=== PATIENT | male | born 1960 | race Caucasian/White ===

== ENCOUNTER 2020-01-18 04:17 | Outpatient (RCR) | payer OTHER, SELFPAY ==
[2020-01-04 07:41] LABS: Abs Immature Grans 0.01 k/cumm (0.0-0.09); Absolute Basophil Count 0.01 k/cumm (0.0-0.2); Absolute Lymphocyte Count 1.51 k/cumm (1.2-3.4); Absolute Monocyte Count 0.61 k/cumm (0.11-0.7); Absolute Neutrophil Count 3.88 k/cumm (1.2-6.7); Basophils % 0.2; Eosinophils % 1.6; HCT 43.2 % (40.0-50.0); HGB 15.3 g/dL (13.5-17.5); Immature Grans % 0.2 %; Lymphocytes % 24.7; Mean Corp. HGB Concentration 35.4 g/dL (32.0-36.0); Mean Corpuscular Hemoglobin 32.6 pg (27.0-33.0); Mean Corpuscular Volume 92.1 fL (80-95); Mean Platelet Volume 9.8 fL (8.0-11.0); Neutrophils % 63.3; Platelet Count 138 x1000/uL (130-400); RBC 4.69 m/cumm (4.50-6.00); RBC Distribution Width 12.4 % (11.8-14.1); White Blood Cell Count 6.12 k/cumm (4.4-10.8)
[2020-01-04] MEDS: Normal Saline Flush 10 ML SYR IVP (07:43)
[2020-01-04 08:30] LABS: ALT 53 U/L (16-63); AST 39 U/L (15-37); Albumin 3.6 g/dL (3.4-5.0); Alkaline Phosphatase 168 U/L (46-116); Anion Gap 8.2 mmol/L (3-11); BUN 13 mg/dL (7-18); Bilirubin, Total 0.6 mg/dL (0.2-1.0); CO2 28.8 mmol/L (21.0-32.0); CREATININE 1.18 mg/dL (0.70-1.30); Calcium 8.7 mg/dL (8.5-10.1); Chloride 103 mmol/L (98-107); Glucose 114 mg/dL (74-106); Potassium 3.8 mmol/L (3.5-5.1); Sodium 140 mmol/L (136-145); Total Protein 6.8 g/dL (6.4-8.2)
[2020-01-11] MEDS: Normal Saline Flush 10 ML SYR IVP (10:43)
[2020-01-11 10:46] LABS: Abs Immature Grans 0.03 k/cumm (0.0-0.09); Absolute Basophil Count 0.01 k/cumm (0.0-0.2); Absolute Eosinophil Count 0.07 k/cumm (0.0-0.7); Absolute Lymphocyte Count 1.08 k/cumm (1.2-3.4); Absolute Monocyte Count 0.31 k/cumm (0.11-0.7); Absolute Neutrophil Count 3.83 k/cumm (1.2-6.7); Basophils % 0.2; Eosinophils % 1.3; HCT 40.4 % (40.0-50.0); HGB 14.4 g/dL (13.5-17.5); Immature Grans % 0.6 %; Lymphocytes % 20.3; Mean Corp. HGB Concentration 35.6 g/dL (32.0-36.0); Mean Corpuscular Hemoglobin 32.6 pg (27.0-33.0); Mean Corpuscular Volume 91.4 fL (80-95); Mean Platelet Volume 9.2 fL (8.0-11.0); Monocytes % 5.8; Neutrophils % 71.8; Platelet Count 161 x1000/uL (130-400); RBC 4.42 m/cumm (4.50-6.00); RBC Distribution Width 12.2 % (11.8-14.1); White Blood Cell Count 5.33 k/cumm (4.4-10.8)
[2020-01-11 11:37] LABS: ALT 63 U/L (16-63); AST 39 U/L (15-37); Albumin 3.6 g/dL (3.4-5.0); Alkaline Phosphatase 149 U/L (46-116); Anion Gap 6.1 mmol/L (3-11); BUN 15 mg/dL (7-18); Bilirubin, Total 0.7 mg/dL (0.2-1.0); CO2 29.9 mmol/L (21.0-32.0); CREATININE 1.14 mg/dL (0.70-1.30); Calcium 8.5 mg/dL (8.5-10.1); Chloride 102 mmol/L (98-107); Glucose 126 mg/dL (74-106); Potassium 3.9 mmol/L (3.5-5.1); Sodium 138 mmol/L (136-145); Total Protein 6.8 g/dL (6.4-8.2)
[2020-01-18 10:30] LABS: Abs Immature Grans 0.01 k/cumm (0.0-0.09); Absolute Basophil Count 0.01 k/cumm (0.0-0.2); Absolute Eosinophil Count 0.02 k/cumm (0.0-0.7); Absolute Lymphocyte Count 0.62 k/cumm (1.2-3.4); Absolute Monocyte Count 0.19 k/cumm (0.11-0.7); Absolute Neutrophil Count 1.85 k/cumm (1.2-6.7); Basophils % 0.4; Eosinophils % 0.7; HCT 37.6 % (40.0-50.0); HGB 13.6 g/dL (13.5-17.5); Immature Grans % 0.4 %; Mean Corp. HGB Concentration 36.2 g/dL (32.0-36.0); Mean Corpuscular Hemoglobin 32.8 pg (27.0-33.0); Mean Corpuscular Volume 90.6 fL (80-95); Mean Platelet Volume 9.1 fL (8.0-11.0); Neutrophils % 68.5; Platelet Count 146 x1000/uL (130-400); RBC 4.15 m/cumm (4.50-6.00); RBC Distribution Width 12.3 % (11.8-14.1)
[2020-01-18] MEDS: Normal Saline Flush 10 ML SYR IVP (10:32)
[2020-01-18 10:42] LABS: ALT 57 U/L (16-63); AST 32 U/L (15-37); Albumin 3.6 g/dL (3.4-5.0); Alkaline Phosphatase 155 U/L (46-116); BUN 17 mg/dL (7-18); Bilirubin, Total 0.8 mg/dL (0.2-1.0); CREATININE 0.98 mg/dL (0.70-1.30); Calcium 8.8 mg/dL (8.5-10.1); Chloride 104 mmol/L (98-107); Glucose 108 mg/dL (74-106); Potassium 3.9 mmol/L (3.5-5.1); Sodium 140 mmol/L (136-145); Total Protein 6.7 g/dL (6.4-8.2)
== END 2020-01-22 23:59 | disposition home or self-care (01) ==
LOC: INF 04:17
PROVIDERS: PCP Family Medicine Adult Medicine; Visit Provider Internal Medicine Hematology & Oncology
DX: C15.9 Malignant neoplasm of esophagus, unspecified (principal); Z45.2 Encounter for adjustment and management of vascular access device
CPT/HCPCS: 36591; 80053; 85025

== ENCOUNTER 2020-02-08 04:22 | Outpatient (RCR) | payer OTHER, SELFPAY ==
[2020-01-24 10:28] LABS: Abs Immature Grans 0.01 k/cumm (0.0-0.09); Absolute Basophil Count 0.01 k/cumm (0.0-0.2); Absolute Eosinophil Count 0.01 k/cumm (0.0-0.7); Absolute Lymphocyte Count 0.45 k/cumm (1.2-3.4); Absolute Monocyte Count 0.16 k/cumm (0.11-0.7); Absolute Neutrophil Count 1.67 k/cumm (1.2-6.7); Basophils % 0.4; Eosinophils % 0.4; HGB 12.5 g/dL (13.5-17.5); Immature Grans % 0.4 %; Lymphocytes % 19.5; Mean Corp. HGB Concentration 35.7 g/dL (32.0-36.0); Mean Corpuscular Hemoglobin 32.3 pg (27.0-33.0); Mean Corpuscular Volume 90.4 fL (80-95); Mean Platelet Volume 9.4 fL (8.0-11.0); Monocytes % 6.9; Neutrophils % 72.4; Platelet Count 143 x1000/uL (130-400); RBC 3.87 m/cumm (4.50-6.00); RBC Distribution Width 12.9 % (11.8-14.1); White Blood Cell Count 2.31 k/cumm (4.4-10.8)
[2020-01-24 10:44] LABS: ALT 52 U/L (16-63); AST 36 U/L (15-37); Albumin 3.7 g/dL (3.4-5.0); Alkaline Phosphatase 132 U/L (46-116); BUN 17 mg/dL (7-18); Bilirubin, Total 1.3 mg/dL (0.2-1.0); CREATININE 1.07 mg/dL (0.70-1.30); Calcium 8.5 mg/dL (8.5-10.1); Chloride 102 mmol/L (98-107); Glucose 101 mg/dL (74-106); Potassium 3.7 mmol/L (3.5-5.1); Sodium 138 mmol/L (136-145); Total Protein 6.8 g/dL (6.4-8.2)
[2020-01-24] MEDS: Normal Saline Flush 10 ML SYR IVP (10:44)
[2020-02-01 10:24] LABS: Abs Immature Grans 0.03 k/cumm (0.0-0.09); Absolute Basophil Count 0.01 k/cumm (0.0-0.2); Absolute Eosinophil Count 0.01 k/cumm (0.0-0.7); Absolute Lymphocyte Count 0.42 k/cumm (1.2-3.4); Absolute Monocyte Count 0.33 k/cumm (0.11-0.7); Basophils % 0.4; Eosinophils % 0.4; HCT 31.5 % (40.0-50.0); HGB 11.2 g/dL (13.5-17.5); Immature Grans % 1.2 %; Lymphocytes % 16.8; Mean Corp. HGB Concentration 35.6 g/dL (32.0-36.0); Mean Corpuscular Hemoglobin 32.7 pg (27.0-33.0); Mean Corpuscular Volume 92.1 fL (80-95); Mean Platelet Volume 9.5 fL (8.0-11.0); Monocytes % 13.2; Platelet Count 150 x1000/uL (130-400); RBC 3.42 m/cumm (4.50-6.00); RBC Distribution Width 14.1 % (11.8-14.1)
[2020-02-01] MEDS: Normal Saline Flush 10 ML SYR IVP (10:34)
[2020-02-01 10:43] LABS: ALT 49 U/L (16-63); AST 31 U/L (15-37); Albumin 3.5 g/dL (3.4-5.0); Alkaline Phosphatase 134 U/L (46-116); Anion Gap 7.5 mmol/L (3-11); BUN 10 mg/dL (7-18); Bilirubin, Total 0.7 mg/dL (0.2-1.0); CO2 28.5 mmol/L (21.0-32.0); CREATININE 0.97 mg/dL (0.70-1.30); Calcium 8.7 mg/dL (8.5-10.1); Chloride 106 mmol/L (98-107); Glucose 100 mg/dL (74-106); Potassium 3.5 mmol/L (3.5-5.1); Sodium 142 mmol/L (136-145); Total Protein 6.4 g/dL (6.4-8.2)
[2020-02-08] MEDS: Heparin 500 UNITS/5 ML SYRINGE IV (07:12)
[2020-02-08] MEDS: Normal Saline Flush 10 ML SYR IVP (07:12)
[2020-02-08 07:36] LABS: Abs Immature Grans 0.02 k/cumm (0.0-0.09); Absolute Eosinophil Count 0.01 k/cumm (0.0-0.7); Absolute Lymphocyte Count 0.57 k/cumm (1.2-3.4); Absolute Monocyte Count 0.21 k/cumm (0.11-0.7); Absolute Neutrophil Count 1.59 k/cumm (1.2-6.7); Eosinophils % 0.4; HCT 31.5 % (40.0-50.0); HGB 11.1 g/dL (13.5-17.5); Immature Grans % 0.8 %; Lymphocytes % 23.8; Mean Corp. HGB Concentration 35.2 g/dL (32.0-36.0); Mean Corpuscular Hemoglobin 32.5 pg (27.0-33.0); Mean Corpuscular Volume 92.1 fL (80-95); Mean Platelet Volume 9.3 fL (8.0-11.0); Monocytes % 8.8; Neutrophils % 66.2; Platelet Count 138 x1000/uL (130-400); RBC 3.42 m/cumm (4.50-6.00)
[2020-02-08 07:51] LABS: ALT 47 U/L (16-63); AST 32 U/L (15-37); Albumin 3.6 g/dL (3.4-5.0); Alkaline Phosphatase 133 U/L (46-116); Anion Gap 7.2 mmol/L (3-11); BUN 14 mg/dL (7-18); CO2 28.8 mmol/L (21.0-32.0); Calcium 8.4 mg/dL (8.5-10.1); Chloride 103 mmol/L (98-107); Glucose 119 mg/dL (74-106); Potassium 3.7 mmol/L (3.5-5.1); Sodium 139 mmol/L (136-145); Total Protein 6.5 g/dL (6.4-8.2)
== END 2020-02-22 23:59 | disposition home or self-care (01) ==
LOC: INF 04:22
PROVIDERS: PCP Family Medicine Adult Medicine; Visit Provider Internal Medicine Hematology & Oncology
DX: C15.9 Malignant neoplasm of esophagus, unspecified (principal); Z45.2 Encounter for adjustment and management of vascular access device
CPT/HCPCS: 36591; 80053; 85025

== ENCOUNTER 2020-03-14 10:03 | Outpatient (RCR) | payer OTHER, SELFPAY ==
[2020-03-14] MEDS: Heparin 500 UNITS/5 ML SYRINGE (10:15)
[2020-03-14 10:22] LABS: Abs Immature Grans 0.05 10^3/uL (0.0-0.06); Absolute Basophil Count 0.03 10^3/uL (0.0-0.2); Absolute Eosinophil Count 0.14 10^3/uL (0.0-0.7); Absolute Lymphocyte Count 0.91 10^3/uL (1.2-3.4); Absolute Monocyte Count 0.68 10^3/uL (0.1-0.8); Absolute Neutrophil Count 4.07 10^3/uL (1.2-6.7); Basophils % 0.5; Eosinophils % 2.4; HCT 41.4 % (40.0-50.0); HGB 14.4 g/dL (13.5-17.5); Immature Grans % 0.9; Lymphocytes % 15.5; MCH 34.6 pg (27.0-33.0); MCHC 34.8 % (32.0-36.0); MCV 99.5 fL (80-95); MPV 9.3 fL (8.0-11.0); Monocytes % 11.6; Neutrophils % 69.1; Nucleated RBC 0 %; Platelet Count 188 10^3/uL (130-400); RBC 4.16 10^6/uL (4.36-5.78); RDW 14.7 % (11.8-14.1); RDW-SD 54.3 fL; WBC 5.88 10^3/uL (4.4-10.8)
[2020-03-14 10:36] LABS: ALT 54 U/L (16-63); AST 36 U/L (15-37); Albumin 3.7 g/dL (3.4-5.0); Alkaline Phosphatase 199 U/L (46-116); Anion Gap 7.2 mmol/L (3-11); BUN 15 mg/dL (7-18); Bilirubin, Total 0.6 mg/dL (0.2-1.0); CO2 28.8 mmol/L (21.0-32.0); CREATININE 1.04 mg/dL (0.70-1.30); Chloride 102 mmol/L (98-107); Glucose 99 mg/dL (74-106); Potassium 3.9 mmol/L (3.5-5.1); Sodium 138 mmol/L (136-145); Total Protein 7.1 g/dL (6.4-8.2)
[2020-03-14] MEDS: Normal Saline Flush 10 ML SYR 30 ML IVP (13:31)
== END 2020-03-24 23:59 | disposition home or self-care (01) ==
LOC: INF 10:03
PROVIDERS: PCP Family Medicine Adult Medicine; Visit Provider Internal Medicine Hematology & Oncology
DX: Z45.2 Encounter for adjustment and management of vascular access device (principal); C15.9 Malignant neoplasm of esophagus, unspecified
CPT/HCPCS: 36591; 80053; 85025

== ENCOUNTER 2020-05-02 09:00 | Outpatient (RCR) | payer OTHER, SELFPAY ==
[2020-04-25] MEDS: Heparin 500 UNITS/5 ML SYRINGE (13:18)
[2020-04-25] MEDS: Normal Saline Flush 10 ML SYR IVP (13:19)
[2020-04-25 13:34] LABS: Abs Immature Grans 0.03 10^3/uL (0.0-0.06); Absolute Basophil Count 0.08 10^3/uL (0.0-0.2); Absolute Lymphocyte Count 3.25 10^3/uL (1.2-3.4); Absolute Monocyte Count 0.79 10^3/uL (0.1-0.8); Basophils % 0.8; Eosinophils % 2.1; HCT 44.9 % (40.0-50.0); Immature Grans % 0.3; MCH 33.8 pg (27.0-33.0); MCHC 35.6 % (32.0-36.0); MCV 94.7 fL (80-95); MPV 9.6 fL (8.0-11.0); Monocytes % 8.3; Neutrophils % 54.5; Nucleated RBC 0 %; Platelet Count 262 10^3/uL (130-400); RBC 4.74 10^6/uL (4.36-5.78); RDW 13.2 % (11.8-14.1); RDW-SD 46.5 fL; WBC 9.55 10^3/uL (4.4-10.8)
[2020-04-25 13:43] LABS: ALT 277 U/L (16-63); AST 278 U/L (15-37); Albumin 3.8 g/dL (3.4-5.0); Alkaline Phosphatase 112 U/L (46-116); Anion Gap 11.3 mmol/L (3-11); BUN 16 mg/dL (7-18); Bilirubin, Total 1.7 mg/dL (0.2-1.0); CO2 26.7 mmol/L (21.0-32.0); Calcium 9.2 mg/dL (8.5-10.1); Chloride 98 mmol/L (98-107); Glucose 211 mg/dL (74-106); Potassium 3.2 mmol/L (3.5-5.1); Sodium 136 mmol/L (136-145); Total Protein 7.6 g/dL (6.4-8.2)
[2020-05-02 09:21] LABS: Abs Immature Grans 0.01 10^3/uL (0.0-0.06); Absolute Basophil Count 0.02 10^3/uL (0.0-0.2); Absolute Eosinophil Count 0.12 10^3/uL (0.0-0.7); Absolute Lymphocyte Count 0.91 10^3/uL (1.2-3.4); Absolute Monocyte Count 0.54 10^3/uL (0.1-0.8); Absolute Neutrophil Count 3.24 10^3/uL (1.2-6.7); Basophils % 0.4; Eosinophils % 2.5; HCT 42.2 % (40.0-50.0); Immature Grans % 0.2; Lymphocytes % 18.8; MCH 33.6 pg (27.0-33.0); MCHC 35.5 % (32.0-36.0); MCV 94.6 fL (80-95); MPV 9.5 fL (8.0-11.0); Monocytes % 11.2; Neutrophils % 66.9; Nucleated RBC 0 %; RBC 4.46 10^6/uL (4.36-5.78); RDW 11.2 % (11.8-14.1); WBC 4.84 10^3/uL (4.4-10.8)
[2020-05-02 09:35] LABS: ALT 55 U/L (16-63); AST 37 U/L (15-37); Albumin 3.6 g/dL (3.4-5.0); Alkaline Phosphatase 180 U/L (46-116); Anion Gap 7.5 mmol/L (3-11); BUN 12 mg/dL (7-18); Bilirubin, Total 0.5 mg/dL (0.2-1.0); CO2 28.5 mmol/L (21.0-32.0); CREATININE 1.05 mg/dL (0.70-1.30); Calcium 8.8 mg/dL (8.5-10.1); Chloride 105 mmol/L (98-107); Glucose 100 mg/dL (74-106); Potassium 3.5 mmol/L (3.5-5.1); Sodium 141 mmol/L (136-145); Total Protein 6.8 g/dL (6.4-8.2)
[2020-05-02 09:37] LABS: Platelet Count 151 10^3/uL (130-400)
[2020-05-02] MEDS: Heparin 500 UNITS/5 ML SYRINGE (09:54)
[2020-05-02] MEDS: Normal Saline Flush 10 ML SYR IVP (09:54)
== END 2020-05-24 23:59 | disposition home or self-care (01) ==
LOC: INF 09:00
PROVIDERS: PCP Family Medicine Adult Medicine; Visit Provider Internal Medicine Hematology & Oncology
DX: C15.9 Malignant neoplasm of esophagus, unspecified (principal); Z45.2 Encounter for adjustment and management of vascular access device
CPT/HCPCS: 36591; 80053; 85025

== ENCOUNTER 2021-10-16 02:55 | Outpatient (RCR) | payer OTHER, SELFPAY ==
[2021-09-25] MEDS: Normal Saline Flush 10 ML SYR IVP (08:30)
[2021-09-25 08:36] LABS: Abs Immature Grans 0.03 10^3/uL (0.0-0.06); Absolute Basophil Count 0.05 10^3/uL (0.0-0.2); Absolute Monocyte Count 0.54 10^3/uL (0.1-0.8); Absolute Neutrophil Count 6.02 10^3/uL (1.2-6.7); Basophils % 0.6; Eosinophils % 1.3; HCT 42.4 % (40.0-50.0); HGB 14.7 g/dL (13.5-17.5); Immature Grans % 0.4; MCH 30.9 pg (27.0-33.0); MCHC 34.7 % (32.0-36.0); MCV 89.1 fL (80-95); MPV 9.4 fL (8.0-11.0); Monocytes % 6.9; Neutrophils % 76.8; Nucleated RBC 0 %; Platelet Count 169 10^3/uL (130-400); RBC 4.76 10^6/uL (4.36-5.78); RDW 12.3 % (11.8-14.1); RDW-SD 40.8 fL; WBC 7.84 10^3/uL (4.4-10.8)
[2021-09-25 08:50] LABS: ALT 32 U/L (16-63); AST 24 U/L (15-37); Albumin 3.7 g/dL (3.4-5.0); Alkaline Phosphatase 165 U/L (46-116); BUN 12 mg/dL (7-18); Bilirubin, Total 0.7 mg/dL (0.2-1.0); CREATININE 1.2 mg/dL (0.70-1.30); Calcium 8.8 mg/dL (8.5-10.1); Chloride 104 mmol/L (98-107); Glucose 118 mg/dL (74-106); Sodium 139 mmol/L (136-145)
[2021-10-02] MEDS: Normal Saline Flush 10 ML SYR IVP (08:42)
[2021-10-02 09:00] LABS: Abs Immature Grans 0.05 10^3/uL (0.0-0.06); Absolute Basophil Count 0.05 10^3/uL (0.0-0.2); Absolute Eosinophil Count 0.06 10^3/uL (0.0-0.7); Absolute Monocyte Count 0.28 10^3/uL (0.1-0.8); Basophils % 0.9; Eosinophils % 1.1; HCT 40.4 % (40.0-50.0); HGB 14.1 g/dL (13.5-17.5); Immature Grans % 0.9; Lymphocytes % 18.1; MCH 31.2 pg (27.0-33.0); MCHC 34.9 % (32.0-36.0); MCV 89.4 fL (80-95); MPV 9.8 fL (8.0-11.0); Monocytes % 5.1; Neutrophils % 73.9; Nucleated RBC 0 %; Platelet Count 175 10^3/uL (130-400); RBC 4.52 10^6/uL (4.36-5.78); RDW 12.1 % (11.8-14.1); RDW-SD 39.7 fL; WBC 5.54 10^3/uL (4.4-10.8)
[2021-10-02 09:10] LABS: ALT 56 U/L (16-63); AST 35 U/L (15-37); Albumin 3.5 g/dL (3.4-5.0); Alkaline Phosphatase 158 U/L (46-116); Anion Gap 5.7 mmol/L (3-11); BUN 14 mg/dL (7-18); Bilirubin, Total 0.6 mg/dL (0.2-1.0); CO2 29.3 mmol/L (21.0-32.0); CREATININE 1.1 mg/dL (0.70-1.30); Calcium 8.3 mg/dL (8.5-10.1); Chloride 102 mmol/L (98-107); Glucose 109 mg/dL (74-106); Potassium 4.1 mmol/L (3.5-5.1); Sodium 137 mmol/L (136-145); Total Protein 6.5 g/dL (6.4-8.2)
[2021-10-09] MEDS: Normal Saline Flush 10 ML SYR IVP (08:45)
[2021-10-09 09:10] LABS: Abs Immature Grans 0.02 10^3/uL (0.0-0.06); Absolute Basophil Count 0.03 10^3/uL (0.0-0.2); Absolute Eosinophil Count 0.05 10^3/uL (0.0-0.7); Absolute Lymphocyte Count 0.82 10^3/uL (1.2-3.4); Absolute Monocyte Count 0.28 10^3/uL (0.1-0.8); Basophils % 0.7; Eosinophils % 1.2; HCT 38.2 % (40.0-50.0); HGB 13.1 g/dL (13.5-17.5); Immature Grans % 0.5; Lymphocytes % 19.5; MCH 31.1 pg (27.0-33.0); MCHC 34.3 % (32.0-36.0); MCV 90.7 fL (80-95); MPV 9.6 fL (8.0-11.0); Monocytes % 6.7; Neutrophils % 71.4; Nucleated RBC 0 %; Platelet Count 163 10^3/uL (130-400); RBC 4.21 10^6/uL (4.36-5.78); RDW 12.1 % (11.8-14.1); RDW-SD 40.2 fL
[2021-10-09 09:25] LABS: ALT 46 U/L (16-63); AST 22 U/L (15-37); Albumin 3.4 g/dL (3.4-5.0); Alkaline Phosphatase 131 U/L (46-116); BUN 14 mg/dL (7-18); Bilirubin, Total 0.8 mg/dL (0.2-1.0); CREATININE 1.2 mg/dL (0.70-1.30); Calcium 8.1 mg/dL (8.5-10.1); Chloride 102 mmol/L (98-107); Glucose 107 mg/dL (74-106); Potassium 3.9 mmol/L (3.5-5.1); Sodium 138 mmol/L (136-145); Total Protein 6.6 g/dL (6.4-8.2)
[2021-10-16] MEDS: Normal Saline Flush 10 ML SYR IVP (08:18)
[2021-10-16 08:38] LABS: Abs Immature Grans 0.02 10^3/uL (0.0-0.06); Absolute Basophil Count 0.02 10^3/uL (0.0-0.2); Absolute Eosinophil Count 0.02 10^3/uL (0.0-0.7); Absolute Lymphocyte Count 0.69 10^3/uL (1.2-3.4); Absolute Monocyte Count 0.27 10^3/uL (0.1-0.8); Absolute Neutrophil Count 1.87 10^3/uL (1.2-6.7); Basophils % 0.7; Eosinophils % 0.7; HCT 34.8 % (40.0-50.0); HGB 12.3 g/dL (13.5-17.5); Immature Grans % 0.7; Lymphocytes % 23.9; MCH 31.4 pg (27.0-33.0); MCHC 35.3 % (32.0-36.0); MCV 88.8 fL (80-95); MPV 9.3 fL (8.0-11.0); Monocytes % 9.3; Neutrophils % 64.7; Nucleated RBC 0 %; Platelet Count 157 10^3/uL (130-400); RBC 3.92 10^6/uL (4.36-5.78); RDW 12.6 % (11.8-14.1); WBC 2.89 10^3/uL (4.4-10.8)
[2021-10-16 08:52] LABS: ALT 46 U/L (16-63); AST 25 U/L (15-37); Albumin 3.4 g/dL (3.4-5.0); Alkaline Phosphatase 128 U/L (46-116); Anion Gap 6.7 mmol/L (3-11); BUN 13 mg/dL (7-18); Bilirubin, Total 0.8 mg/dL (0.2-1.0); CO2 29.3 mmol/L (21.0-32.0); CREATININE 1.1 mg/dL (0.70-1.30); Calcium 7.9 mg/dL (8.5-10.1); Chloride 104 mmol/L (98-107); Glucose 101 mg/dL (74-106); Sodium 140 mmol/L (136-145); Total Protein 6.7 g/dL (6.4-8.2)
== END 2021-10-22 23:59 | disposition home or self-care (01) ==
LOC: INF 02:55
PROVIDERS: PCP Family Medicine Adult Medicine; Visit Provider Internal Medicine Hematology & Oncology
DX: C15.9 Malignant neoplasm of esophagus, unspecified (principal)
CPT/HCPCS: 36591; 80053; 85025

== ENCOUNTER 2021-10-23 01:03 | Outpatient (RCR) | payer OTHER, SELFPAY ==
[2021-10-23] MEDS: Normal Saline Flush 10 ML SYR IVP (08:52)
[2021-10-23 09:16] LABS: Abs Immature Grans 0.02 10^3/uL (0.0-0.06); Absolute Basophil Count 0.03 10^3/uL (0.0-0.2); Absolute Eosinophil Count 0.01 10^3/uL (0.0-0.7); Absolute Lymphocyte Count 0.54 10^3/uL (1.2-3.4); Absolute Monocyte Count 0.17 10^3/uL (0.1-0.8); Absolute Neutrophil Count 1.87 10^3/uL (1.2-6.7); Basophils % 1.1; Eosinophils % 0.4; HCT 33.2 % (40.0-50.0); HGB 11.6 g/dL (13.5-17.5); Immature Grans % 0.8; Lymphocytes % 20.5; MCH 31.5 pg (27.0-33.0); MCHC 34.9 % (32.0-36.0); MCV 90.2 fL (80-95); MPV 9.2 fL (8.0-11.0); Monocytes % 6.4; Neutrophils % 70.8; Nucleated RBC 0 %; Platelet Count 134 10^3/uL (130-400); RBC 3.68 10^6/uL (4.36-5.78); RDW 13.1 % (11.8-14.1); RDW-SD 41.4 fL; WBC 2.64 10^3/uL (4.4-10.8)
[2021-10-23 09:28] LABS: ALT 42 U/L (16-63); AST 25 U/L (15-37); Albumin 3.5 g/dL (3.4-5.0); Alkaline Phosphatase 124 U/L (46-116); BUN 15 mg/dL (7-18); Bilirubin, Total 0.8 mg/dL (0.2-1.0); CREATININE 1.1 mg/dL (0.70-1.30); Calcium 8.3 mg/dL (8.5-10.1); Chloride 104 mmol/L (98-107); Glucose 111 mg/dL (74-106); Potassium 3.9 mmol/L (3.5-5.1); Sodium 139 mmol/L (136-145); Total Protein 6.5 g/dL (6.4-8.2)
== END 2021-11-21 23:59 | disposition home or self-care (01) ==
LOC: INF 01:03
PROVIDERS: PCP Family Medicine Adult Medicine; Visit Provider Internal Medicine Hematology & Oncology
DX: C15.9 Malignant neoplasm of esophagus, unspecified (principal); Z45.2 Encounter for adjustment and management of vascular access device
CPT/HCPCS: 36591; 80053; 85025